=== PATIENT | male | born 1975 | race American Indian/Alaskan Native ===

== ENCOUNTER 2021-09-17 20:14 | Emergency (ER) | payer OTHER ==
[2021-09-17 23:16] VITALS: BP 138/85
[2021-09-17] MEDS ORDERED: IBUPROFEN 600 MG TAB PO ONE (23:31)
[2021-09-17] MEDS ORDERED: ACETAMINOPHEN 500 MG TAB PO ONE (23:31)
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
== END 2021-09-18 01:30 | disposition home or self-care (01) ==
LOC: ED 20:14
DX: S29.012A Strain of muscle and tendon of back wall of thorax, initial encounter (principal); M62.830 Muscle spasm of back; M62.838 Other muscle spasm; V49.49XA Driver injured in collision with other motor vehicles in traffic accident, initial encounter; Y93.89 Activity, other specified; Y92.89 Other specified places as the place of occurrence of the external cause; Y99.8 Other external cause status
CPT/HCPCS: 72100; 72125; 99284